=== PATIENT | male | born 1950 | race African-American/Black ===

== ENCOUNTER 2017-05-22 10:11 | Emergency (ER) | payer MEDICARE ==
[~2017-05-22 10:11] MED LIST: AMLO5TAB96 PO; MECL25 PO
[2017-05-22 10:13] VITALS: BP 202/89; PULSE 96; RESP 18; TEMP 98.2; O2SAT 98
[2017-05-22 10:20] VITALS: BP 153/89; PULSE 83
[2017-05-22] MEDS ORDERED: AMLO5 PO (10:59)
[2017-05-22] MEDS ORDERED: BENZ100 PO (11:09)
[2017-05-22] MEDS ORDERED: ALBUAER3 INH (11:09)
[2017-05-22] MEDS ORDERED: PRED20 PO (11:09)
[2017-05-22] MEDS ORDERED: predniSONE 20 MG TAB PO ONE (11:15)
[2017-05-22] MEDS ORDERED: RESP: ALBUTEROL 2.5 MG/IPRATROPIUM 0.5 MG NEB (SCH) INH ONE (11:15)
--- NOTE | 2017-05-22 11:16 | PD ---
HPI Chief Complaint: Cold / Flu Symptoms Time Seen by Provider: 10:58 Travel History International Travel<30 days: No Contact w/Intl Traveler<30days: No History of Present Illness HPI 67-year-old male presents for evaluation of cough, congestion, sneezing. Symptoms started 4 days ago. He has been using [id number] TheraFlu but symptoms persist which prompted evaluation. Symptoms are mild with no obvious aggravating or alleviating factors. Denies any fevers. Denies any recent travel. Denies any sick contacts. He has no other complaints at this time. PFSH Past Medical History Diabetes: Yes ("BORDERLINE") Patient Takes Glucophage: No Gastrointestinal Disorders: Yes (ACID REFLUX) Hypertension: Yes Social History Alcohol Use: Yes (RARE) Tobacco Use: No Substance Use: No Allergies-Medications (Allergen,Severity, Reaction): Coded Allergies: No Known Allergies (Verified , 10/16/05) Reported Meds & Prescriptions Reported Meds & Active Scripts Active Proair Hfa 8.5 GM Inh (Albuterol Sulfate) 90 Mcg/Act Aer 2 Puff INH Q4-6H PRN 108 mcg/actuation Tessalon Perles (Benzonatate) 100 Mg Cap 100 Mg PO TID PRN Prednisone 20 Mg Tab 20 Mg PO BID 5 Days Reported Norvasc (Amlodipine Besylate) 5 Mg Tab 5 Mg PO DAILY Review of Systems Except as stated in HPI: all other systems reviewed are Neg Physical Exam Narrative GENERAL: Well-developed well-nourished male in no acute distress SKIN: Warm and dry. HEAD: Atraumatic. Normocephalic. EYES: Pupils equal and round. No scleral icterus. No injection or drainage. ENT: No nasal bleeding or discharge. Mucous membranes pink and moist. No oral pharyngeal erythema or exudate. No tenderness to palpation over the maxillary or frontal sinuses. NECK: Trachea midline. No JVD. No lymphadenopathy CARDIOVASCULAR: Regular rate and rhythm. No murmur appreciated. RESPIRATORY: No accessory muscle use. Faint wheezing bilaterally. Data Data Last Documented VS Vital Signs Date Time Temp Pulse Resp B/P (MAP) Pulse Ox O2 Delivery O2 Flow Rate FiO2 05/22/17 10:20 83 153/89 (110) 05/22/17 10:13 98.2 18 98 Room Air Orders Orders Albuterol-Ipratropium Neb (Duoneb Neb) (05/22/17 11:15) Prednisone (Deltasone) (05/22/17 11:15) Ed Discharge Order (05/22/17 11:49) [facility] Medical Decision Making Medical Screen Exam Complete: Yes Emergency Medical Condition: Yes Medical Record Reviewed: Yes Differential Diagnosis Bronchitis, sinusitis, rhinitis, reactive airway disease, influenza, pneumonia Narrative Course 67-year-old male 4 days of cough, congestion, sneezing. On examination he is faint wheezing bilaterally. He'll be treated with a short course of glucocorticoids as well as bronchodilators. Diagnosis Primary Impression: Bronchitis Additional Instructions: Medication as prescribed. Stay well hydrated and well-nourished. Follow-up with primary care physician. Return for any emergent medical conditions. Med/Other Pt SpecificInfo: Prescription(s) given Scripts Albuterol 8.5 GM Inh (Proair Hfa 8.5 GM Inh) 90 Mcg/Act Aer 2 PUFF INH Q4-6H Y for SHORTNESS OF BREATH, #1 INHALER 0 Refills 108 mcg/actuation Prov: Tevin Sandoval MD 05/22/17 Benzonatate (Tessalon Perles) 100 Mg Cap 100 MG PO TID Y for COUGH, #30 CAP 0 Refills Prov: Tevin Sandoval MD 05/22/17 Prednisone (Prednisone) 20 Mg Tab 20 MG PO BID for 5 Days, #10 TAB 0 Refills Prov: Tevin Sandoval MD 05/22/17 Disposition: 01 DISCHARGE HOME Condition: Stable Bernard Landa May 22, 2017 11:16
== END 2017-05-22 12:06 | disposition home or self-care (01) ==
LOC: NEPK 10:11
DX: J40 Bronchitis, not specified as acute or chronic (principal); K21.9 Gastro-esophageal reflux disease without esophagitis; I10 Essential (primary) hypertension
CPT/HCPCS: 94664; 99283; J7512